=== PATIENT | female | born 1990 | race Caucasian/White ===

== ENCOUNTER 2020-09-29 09:06 | Emergency (ER) | payer OTHER ==
[2020-09-29 09:18] VITALS: BP 117/79; PULSE 90; TEMP 99.3; BMI 20.1
[2020-09-29] MEDS ORDERED: LIDOCAINE VISCOUS 2% ORAL/TOP 20 ML UNIT-DOSE CUP MM ONE (09:24)
[2020-09-29] MEDS ORDERED: LIDOCAINE VISCOUS 2% ORAL/TOP 20 ML UNIT-DOSE CUP ONE (09:25)
[2020-09-29] MEDS ORDERED: IBUPROFEN 100 MG/5 ML UNIT DOSE CUPS PO ONE (09:37)
[2020-09-29] MEDS ORDERED: IBUPROFEN 100 MG/5 ML UNIT DOSE CUPS ONE (09:45)
== END 2020-09-29 10:55 | disposition home or self-care (01) ==
LOC: FER 09:06
DX: R07.0 Pain in throat (principal)
CPT/HCPCS: 70360-TC-FY; 81025; 99284-25